=== PATIENT | female | born 1940 | race Caucasian/White ===

== ENCOUNTER 2018-04-06 11:16 | Emergency (ER) | payer OTHER, BC, MEDICARE ==
[~2018-04-06] VITALS: Ht 157.5 cm; Wt 65.8 kg
--- NOTE | 2018-04-06 12:10 | ED MVC/FALL/TRAUMA COMPLAINT ---
History of Present Illness General Chief Complaint: Fall Stated Complaint: S/P FALL LEFT KNEE RT ANKLE PAIN Source: patient Exam Limitations: no limitations Vital Signs & Intake/Output Vital Signs & Intake/Output Vital Signs Date Time Temp Pulse Resp B/P B/P Pulse O2 O2 Flow FiO2 Mean Ox Delivery Rate 04/06 1311 97.7 60 18 149/67 95 Room Air 04/06 1143 Room Air 04/06 1121 98.2 69 18 151/76 95 Allergies Coded Allergies: codeine (Intermediate, DIZZINESS, VOMITING 04/06/18) Uncoded Allergies: IV CONTRAST (Mild, HIVES 04/06/18) Triage Note: RECEIVED 77 YO FEMALE WITH S/P MECHANICAL FALL LAST NIGHT, PT TWISTED RIGHT ANKLE AND FELL ON LEFT KNEE. PT REPORTS RIGHT ANKLE SWELLING AND PAIN AND L KNEE PAIN Triage Nurses Notes Reviewed? yes Onset: Abrupt Duration: day(s): Timing: recent history Severity: moderate Injuries/Fall Location: lower extremity Method of Injury: fall Loss of Consciousness: no loss of consciousness HPI: 77yo female presents to ED complaining of pain in right foot/ankle and left knee after fall last night. Patient states she was walking on uneven pavement when she rolled her left ankle causing her to fall forward injury right foot and landing on left knee. Patient sustained abrasions to left anterior knee which she cleaned and dressed with bacitracin. Patient reports pain most severe in right foot, exacerbating with walking and relieved with rest. She denies numbness, tingling, head injury, lightheadedness. (Jordyn Calzada) Past History Travel History Traveled to [place] past 21 day No Medical History Any Pertinent Medical History? see below for history Neurological: NONE EENT: NONE Cardiovascular: SVT Respiratory: NONE Gastrointestinal: NONE Hepatic: NONE Renal: NONE Musculoskeletal: NONE Psychiatric: NONE Endocrine: NONE Blood Disorders: NONE Cancer(s): NONE Surgical History Surgical History: non-contributory Psychosocial History What is your primary language Sammarinese Tobacco Use: Quit >30 days ago Family History Hx Contributory? No (Jordyn Calzada) Review of Systems Review of Systems Constitutional: Reports: no symptoms. Eyes: Reports: no symptoms. Ears, Nose, Throat, Mouth: Reports: no symptoms. Respiratory: Reports: no symptoms. Cardiovascular: Reports: no symptoms. Gastrointestinal/Abdominal: Reports: no symptoms. Genitourinary: Reports: no symptoms. Musculoskeletal: Reports: see HPI. Skin: Reports: see HPI. Neurological/Psychological: Reports: no symptoms. All Other Systems: Reviewed and Negative (Kay DANIEL,Jordyn Conrad) Physical Exam Physical Exam General Appearance: well developed/nourished, no apparent distress, alert, awake Head: atraumatic, normal appearance Eyes: Bilateral: normal appearance. Ears, Nose, Throat, Mouth: hearing grossly normal Neck: normal inspection, supple, full range of motion Respiratory: no respiratory distress Peripheral Pulses: 2+ dorsalis pedis (R), 2+ dorsalis pedis (L) Back: normal inspection, normal range of motion Extremities: right foot: ecchymosis and tenderness to lateral foot along 5th metatarsal, ankle is nontender left knee: ecchymosis distal to knee with mild tenderness, superficial abrasions, FROM, no crepitus Neurologic/Psych: awake, alert, oriented x 3 Skin: ecchymosis, abrasions Core Measures ACS in differential dx? No CVA/TIA Diagnosis No Sepsis Present: No Sepsis Focused Exam Completed? No (Kay DANIEL,Jordyn Conrad) Progress Differential Diagnosis: ext injury, fracture, sprain, abrasion Plan of Care: Orders Procedure Date/time Status Durable Medical Equipment 04/06 124 Active Patient's tetanus status is up-to-date. Xray images show nondisplaced fifth metatarsal fracture. Patient is neurovascularly intact. Patient placed in a walking boot and given podiatry referral. Patient seen and evaluated by Dr. Pelaez who agrees with this plan. Patient had a mechanical fall. Diagnostic Imaging: Viewed by Me: Radiology Read. Discussed w/RAD: Radiology Read. Radiology Impression: PATIENT: RADHA COOPER PRESENT AGE: 77 PATIENT ACCOUNT NO: [id number] : 41 LOCATION: [facility] ORDERING PHYSICIAN: Jordyn DANIEL SERVICE DATE: 04/06/18 EXAM TYPE: RAD - XRY-ANKLE 3 OR MORE VIEWS R; XRY-FOOT COMPLETE, R; XRY-KNEE COMPLETE LEFT EXAMINATION: Left knee, right foot and right ankle. CLINICAL INFORMATION: Status post fall . Pain. COMPARISON: None TECHNIQUE: Four views of the left knee. 3 views right foot and 3 views right ankle. FINDINGS: LEFT KNEE: There is no visible acute fracture, dislocation or subluxation. There is a small superior patellar spur. Mild loss of tricompartment joint space is seen. No loose bodies or bony erosive changes seen. There is no suprapatellar joint effusion either. RIGHT FOOT: There is a nondisplaced fracture base of fifth metatarsal with mild soft tissue swelling. No additional fracture or dislocation seen. There is a small calcaneal heel spur. The soft tissues are normal. RIGHT ANKLE: There is no visible acute fracture, dislocation or lytic process. The ankle mortise and subtalar joints are normal. Again visualized is undisplaced fracture base of fifth metatarsal. IMPRESSION: Undisplaced fracture base of fifth metatarsal with soft tissue swelling right foot. Unremarkable right ankle exam except for mild lateral distal right foot soft tissue swelling. A small calcaneal spur is seen. 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 No visible acute fracture or dislocation seen. DICTATED BY: Delon Kinney MD DATE/TIME DICTATED:04/06/181232 BURRER OPERATOR:CRISSY DATE/TIME TRANSCRIBED:04/06/181232 CONFIDENTIAL, DO NOT COPY WITHOUT APPROPRIATE AUTHORIZATION. <Electronically signed in Other Vendor System> SIGNED BY: Delon Kinney MD 04/06/18 1242 (Kay DANIEL,Jordyn Conrad) Departure Departure Disposition: HOME OR SELF CARE Condition: Stable Clinical Impression Primary Impression: Fracture of fifth metatarsal bone Qualifiers: Encounter type: initial encounter Fracture type: closed Fracture alignment: displaced Laterality: right Qualified Code: S92.351A - Displaced fracture of fifth metatarsal bone, right foot, initial encounter for closed fracture Secondary Impressions: Fall Qualifiers: Encounter type: initial encounter Qualified Code: W19.XXXA - Unspecified fall, initial encounter Referrals: Reji CARLOS,Rudy Unknown (PCP/Family) Additional Instructions: Follow up with [facility] prior to your return to [place]. Take tylenol or ibuprofen as prescribed as needed for pain. REturn with worsening symptoms or concerns. Please note that there might be incidental findings in your evaluation that are unrelated to the current emergency department visit. Please notify your primary care doctor about this emergency department visit in order to obtain and review all of the testing performed so that these incidental findings can be monitored as needed. If you had an x-ray performed, please understand that some fractures may not be seen on the initial set of x-rays. If your symptoms persist you might need a repeat set of x-rays to check for such a fracture. If you had a laceration evaluated, please understand that foreign bodies such as glass or wood may not be visible to the naked eye or on plain x-rays. If the wound becomes red, swollen, increasingly more painful or if there is any drainage from the wound, please have it reevaluated by a physician for the possibility of a retained foreign body. If you're unable to follow up as outlined in the discharge instructions please return to the emergency department. Thank you for choosing the [facility] Emergency Department for your care. It was a pleasure to serve you today. Departure Forms: Customer Survey General Discharge Information (Kay DANIEL,Jordyn Conrad) PA/BIOLOGIST AIDE Co-Sign Statement Statement: ED Attending supervision documentation- [x] I saw and evaluated the patient. I have also reviewed all the pertinent lab results and diagnostic results. I agree with the findings and the plan of care as documented in the PA's/BIOLOGIST AIDE's documentation. [] I have reviewed the ED Record and agree with the PA's/BIOLOGIST AIDE's documentation. [] Additions or exceptions (if any) to the PAs/BIOLOGIST AIDE's note and plan are summarized below: [] (Maxx Pelaez DO)
--- NOTE | 2018-04-06 12:42 | RADIOLOGY REPORT ---
EXAMINATION: Left knee, right foot and right ankle. CLINICAL INFORMATION: Status post fall . Pain. COMPARISON: None TECHNIQUE: Four views of the left knee. 3 views right foot and 3 views right ankle. FINDINGS: LEFT KNEE: There is no visible acute fracture, dislocation or subluxation. There is a small superior patellar spur. Mild loss of tricompartment joint space is seen. No loose bodies or bony erosive changes seen. There is no suprapatellar joint effusion either. RIGHT FOOT: There is a nondisplaced fracture base of fifth metatarsal with mild soft tissue swelling. No additional fracture or dislocation seen. There is a small calcaneal heel spur. The soft tissues are normal. RIGHT ANKLE: There is no visible acute fracture, dislocation or lytic process. The ankle mortise and subtalar joints are normal. Again visualized is undisplaced fracture base of fifth metatarsal. IMPRESSION: Undisplaced fracture base of fifth metatarsal with soft tissue swelling right foot. Unremarkable right ankle exam except for mild lateral distal right foot soft tissue swelling. A small calcaneal spur is seen. 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 No visible acute fracture or dislocation seen.
== END 2018-04-06 13:14 ==
LOC: ERH 11:16
DX: S92.351A Displaced fracture of fifth metatarsal bone, right foot, initial encounter for closed fracture (principal); M25.571 Pain in right ankle and joints of right foot; M25.562 Pain in left knee; W19.XXXA Unspecified fall, initial encounter; Y93.01 Activity, walking, marching and hiking
CPT/HCPCS: 73562-LT; 73610-RT; 73630-RT